=== PATIENT | female | born 1960 | race Caucasian/White ===

== ENCOUNTER 2019-09-10 12:59 | Emergency (ER) | payer OTHER ==
[~2019-09-10] VITALS: Ht 170.2 cm; Wt 80.3 kg
[2019-09-10] MEDS ORDERED: CARVEDILOL12.5 MG PO (13:12)
[2019-09-10] MEDS ORDERED: KEFLEX500 M2 PO (14:01)
[2019-09-10 14:46] VITALS: BP 180/87
== END 2019-09-10 14:46 | disposition home or self-care (01) ==
LOC: M.ERS 12:59
DX: S61.211A Laceration without foreign body of left index finger without damage to nail, initial encounter (principal); I10 Essential (primary) hypertension; W26.8XXA Contact with other sharp object(s), not elsewhere classified, initial encounter; Y93.89 Activity, other specified; Y92.89 Other specified places as the place of occurrence of the external cause; Y99.8 Other external cause status